=== PATIENT | female | born 1955 | race Caucasian/White ===

== ENCOUNTER → 2016-11-27 | Outpatient (CLI) | payer BC | LOC: COL.VAS 11-20 13:45 | DX: I34.0 Nonrheumatic mitral (valve) insufficiency (principal); R00.2 Palpitations ==

== ENCOUNTER → 2017-06-10 | Outpatient (CLI) | payer BC | LOC: MC.RAD 08:00 | DX: Z12.31 Encounter for screening mammogram for malignant neoplasm of breast (principal) ==

== ENCOUNTER → 2018-07-14 | Outpatient (CLI) | payer BC | LOC: MC.RAD 10:29 | DX: Z12.31 Encounter for screening mammogram for malignant neoplasm of breast (principal) ==

== ENCOUNTER → 2019-08-11 | Outpatient (CLI) | payer BC | LOC: MC.RAD 08:00 | DX: Z12.31 Encounter for screening mammogram for malignant neoplasm of breast (principal) ==

== ENCOUNTER 2020-01-02 09:12 | Outpatient (CLI) | payer BC ==
[~2020-01-02] VITALS: Ht 167.6 cm; Wt 62.1 kg
[2020-01-02] MEDS ORDERED: PRINIVIL5 MG PO (10:03)
[2020-01-02] MEDS ORDERED: LEVOXYL0.075 MG PO (10:04)
[2020-01-02 10:07] VITALS: BP 190/85; PULSE 49; TEMP 97.8
[2020-01-02] MEDS ORDERED: CEPHALEXIN500 M1 PO (10:28)
[2020-01-02 10:50] VITALS: BP 182/75; PULSE 49; TEMP 97.8
[2020-01-02 11:15] VITALS: BP 172/73; PULSE 50; TEMP 98
--- NOTE | 2020-01-02 11:35 | NUR ---
Patient was discharged at 1130, alert and orientated, ambulated with no difficulty. VS WNL, discharge instructions read to patient, verbalized understanding, denies questions.
== END 2020-01-02 11:30 | disposition home or self-care (01) ==
LOC: COL.CAR 09:12
DX: R00.1 Bradycardia, unspecified (principal); E78.5 Hyperlipidemia, unspecified; I10 Essential (primary) hypertension; G43.909 Migraine, unspecified, not intractable, without status migrainosus

== ENCOUNTER → 2020-02-10 | Outpatient (CLI) | payer BC ==
[~2020-02-10] MED LIST: CEPHALEXIN500 M1 PO; LEVOXYL0.075 MG PO; PRINIVIL5 MG PO; TYLENOL 325MG325 MG PO
== END ==
LOC: COL.LAB 08:00
DX: Z20.828 Contact with and (suspected) exposure to other viral communicable diseases (principal)

== ENCOUNTER 2020-02-15 08:37 | Day surgery (SDC) | payer BC ==
[2020-02-15] VITALS (7 sets, daily range): BP systolic 125–224; BP diastolic 74–92; PULSE 45–81; TEMP 97.5–99
[~2020-02-15] VITALS: Ht 167.6 cm; Wt 63.2 kg
[~2020-02-15 08:37] MED LIST changes: -TYLENOL 325MG325 MG PO
[2020-02-15 09:17] LABS: HEMOGLOBIN 13.9 g/dl (12.5-16.0); MEAN CELL VOLUME 93 fl (80.0-100.0); MEAN CORPUSCULAR HEMOGLOBIN 31 pg (27.0-31.0); MEAN CORPUSCULAR HGB CONC 33 g/dl (33.0-37.0); MEAN PLATELET VOLUME 10.3 fl (7.4-10.4); PLATELET COUNT 230 K/mm3 (130-400); RED BLOOD COUNT 4.51 M/mm3 (4.10-5.30); REDCELL DISTRIBUTION WIDTH-CV 13.5 % (11.5-14.5)
[2020-02-15 09:33] LABS: CALCIUM 9.5 mg/dL (8.4-10.2); CREATININE, serum 0.75 (0.52-1.25); POTASSIUM 4.1 mmol/L (3.4-5.0)
[2020-02-15 09:59] LABS: PROTHROMBIN TIME 11.7 SECONDS (9.7-12.8)
[2020-02-16 03:20] VITALS: BP 179/68; PULSE 50; TEMP 98.3
[2020-02-16 06:37] VITALS: BP 171/80
[2020-02-16 07:12] VITALS: BP 166/80; PULSE 60; TEMP 98
[2020-02-16] MEDS ORDERED: CEPHALEXIN500 M1 PO (09:38)
[2020-02-16] MEDS ORDERED: TYLENOL 325MG325 MG PO (09:39)
== END 2020-02-16 10:30 | disposition home or self-care (01) ==
LOC: COL.CAR 08:37 → MEDICAL 13:21 → COL.CAR 02-16 10:30
PROVIDERS: Internal Medicine Cardiovascular Disease
DX: I49.5 Sick sinus syndrome (principal); E78.5 Hyperlipidemia, unspecified; G43.909 Migraine, unspecified, not intractable, without status migrainosus
CPT/HCPCS: OP; C1769; C1785; C1894; C1898; J0690; J2060; J2250; J2405; J3010; J7030

== ENCOUNTER → 2020-10-09 | Outpatient (CLI) | payer MEDICARE ==
[~2020-10-09] MED LIST changes: +TYLENOL 325MG325 MG PO
== END ==
LOC: MC.RAD 08:15
DX: Z12.31 Encounter for screening mammogram for malignant neoplasm of breast (principal); Z95.0 Presence of cardiac pacemaker

== ENCOUNTER → 2021-11-12 | Outpatient (CLI) | payer BC | LOC: MC.RAD 09:55 | DX: Z12.31 Encounter for screening mammogram for malignant neoplasm of breast (principal) ==

== ENCOUNTER → 2023-01-13 | Outpatient (CLI) | payer BC | LOC: MC.RAD 13:52 | DX: Z12.31 Encounter for screening mammogram for malignant neoplasm of breast (principal); R92.8 Other abnormal and inconclusive findings on diagnostic imaging of breast ==